=== PATIENT | male | born 1945 | race Caucasian/White ===

== ENCOUNTER 2016-11-01 10:56 | Observation (INO) | payer OTHER, MEDICARE ==
[2016-11-01] MEDS ORDERED: ASPIRIN 81 MG TABLET, CHEWABLE PO ONE (11:05)
--- NOTE | 2016-11-01 11:35 | RADIOLOGY REPORT (SQ) ---
EXAM DESCRIPTION: CHEST SINGLE VIEW COMPLETED DATE/TIME: 11/01/2016 11:23 am REASON FOR STUDY: chest pain COMPARISON: 12/25/2013 EXAM PARAMETERS: NUMBER OF VIEWS: One view. TECHNIQUE: Single frontal radiographic view of the chest acquired. RADIATION DOSE: NA LIMITATIONS: None. FINDINGS: LUNGS AND PLEURA: No opacities, masses or pneumothorax. No pleural effusion. MEDIASTINUM AND HILAR STRUCTURES: No masses. Contour normal. HEART AND VASCULAR STRUCTURES: Heart normal in size. Normal vasculature. BONES: No acute findings. HARDWARE: None in the chest. OTHER: No other significant finding. IMPRESSION: NO ACUTE RADIOGRAPHIC FINDING IN THE CHEST. TECHNICAL DOCUMENTATION: JOB ID: [id number]
--- NOTE | 2016-11-01 11:38 | ER Document Report ---
ED General - General Chief Complaint: Chest Pain Stated Complaint: CHEST PAIN Time Seen by Provider: 11/01/16 11:05 Mode of Arrival: Medic Information source: Patient Notes: 71-year-old male history of hypertension hypercholesterolemia presents with complaints of chest pain. Patient notes that the pain occurs every few months with tightness left arm pain. Patient has never seen a physician for [facility]. - HPI Onset: Other Onset/Duration: Intermittent Quality of pain: Pressure Severity: Mild Pain Level: 1 Associated symptoms: Chest pain Exacerbated by: Denies Relieved by: Denies Similar symptoms previously: Yes Recently seen / treated by doctor: Yes - Related Data Allergies/Adverse Reactions: No Known Allergies Allergy (Unverified 12/25/13 22:43) Past Medical History - Social History Smoking Status: Never Smoker Cigarette use (# per day): No Chew tobacco use (# tins/day): No Smoking Education Provided: No Family History: Reviewed & Not Pertinent - Past Medical History Cardiac Medical History: Reports: Hx Hypercholesterolemia, Hx Hypertension GI Medical History: Reports: Hx Gastroesophageal Reflux Disease - Immunizations Hx Diphtheria, Pertussis, Tetanus Vaccination: Yes Review of Systems - Review of Systems Notes: REVIEW OF SYSTEMS: CONSTITUTIONAL : Denies fever, chills, or sweats. Denies recent illness. EENT: Denies eye, ear, throat, or mouth pain or symptoms. Denies nasal or sinus congestion or discharge. Denies throat, tongue, or mouth swelling or difficulty swallowing. CARDIOVASCULAR: admits to chest pain RESPIRATORY: Denies cough, cold, or chest congestion. Denies shortness of breath, difficulty breathing, or wheezing. GASTROINTESTINAL: Denies abdominal pain or distention. Denies nausea, vomiting , or diarrhea. Denies blood in vomitus, stools, or per rectum. Denies black, tarry stools. Denies constipation. GENITOURINARY: Denies difficulty urinating, painful urination, burning, frequency, blood in urine, or discharge. MUSCULOSKELETAL: Denies back or neck pain or stiffness. Denies joint pain or swelling. SKIN: Denies rash, lesions or sores. HEMATOLOGIC : Denies easy bruising or bleeding. LYMPHATIC: Denies swollen, enlarged glands. NEUROLOGICAL: Denies confusion or altered mental status. Denies passing out or loss of consciousness. Denies dizziness or lightheadedness. Denies headache. Denies weakness or paralysis or loss of use of either side. Denies problems with gait or speech. Denies sensory loss, numbness, or tingling. Denies seizures. PSYCHIATRIC: Denies anxiety or stress. Denies depression, suicidal ideation, or homicidal ideation. ALL OTHER SYSTEMS REVIEWED AND NEGATIVE. Dictation was performed using [employer] voice recognition software PHYSICAL EXAMINATION: GENERAL: Well-appearing, well-nourished and in no acute distress. HEAD: Atraumatic, normocephalic. EYES: Pupils equal round and reactive to light, extraocular movements intact, sclera anicteric, conjunctiva are normal. ENT: Nares patent, oropharynx clear without exudates. Moist mucous membranes. NECK: Normal range of motion, supple without lymphadenopathy LUNGS: Breath sounds clear to auscultation bilaterally and equal. No wheezes rales or rhonchi. HEART: Regular rate and rhythm without murmurs ABDOMEN: Soft, nontender, nondistended abdomen. No guarding, no rebound. No masses appreciated. Musculoskeletal: Normal range of motion, no pitting or edema. No cyanosis. NEUROLOGICAL: Cranial nerves grossly intact. Normal speech, normal gait. Normal sensory, motor exams PSYCH: Normal mood, normal affect. SKIN: Warm, Dry, normal turgor, no rashes or lesions noted. Physical Exam - Vital signs Vitals: Temp 97.6 F 11/01/16 11:07 Course - Re-evaluation Re-evalutation: 11/01/16 12:14 patients labs pending, expect acs ruleout 11/01/16 15:40 Patient admitted for observation versus a cardiac enzymes lab work noted no significant abnormality - Vital Signs Vital signs: Temp Pulse Resp BP Pulse Ox 97.6 F 25 H 124/79 98 11/01/16 11:07 11/01/16 15:09 11/01/16 15:09 11/01/16 15:09 - Laboratory Result Diagrams: 11/01/16 11:30 11/01/16 11:30 Laboratory results interpreted by me: 11/01/16 11:30 RDW 16.2 H - Diagnostic Test Radiology reviewed: Image reviewed, Reports reviewed - EKG Interpretation by Me EKG shows normal: Sinus rhythm, [place], Intervals, QRS Complexes Discharge - Discharge Clinical Impression: Hypercholesteremia Chest pain Qualifiers: Chest pain type: unspecified Qualified Code(s): R07.9 - Chest pain, unspecified Hypertension Qualifiers: Hypertension type: essential hypertension Qualified Code(s): I10 - Essential ( primary) hypertension Condition: Stable Disposition: ADMITTED OBSERVATION Admitting Provider: Hospitalist Unit Admitted: Telemetry
[2016-11-01 11:44] LABS: ABSOLUTE BASOPHILS # (AUTO) 0.1 10^3/uL (0.0-0.2); ABSOLUTE EOSINOPHILS # (AUTO) 0.1 10^3/uL (0.0-0.6); ABSOLUTE LYMPHOCYTES (AUTO) 1.1 10^3/uL (0.5-4.7); ABSOLUTE MONOCYTES (AUTO) 0.5 10^3/uL (0.1-1.4); ABSOLUTE NEUT (AUTO) 4.5 10^3/uL (1.7-8.2); BASOPHILS % (AUTO) 1.2 % (0-2); EOSINOPHILS % (AUTO) 1.8 % (0-6); HEMATOCRIT 43.8 % (37.9-51.0); HEMOGLOBIN 14.5 g/dL (13.5-17.0); HGB HCT DIFFERENCE -0.3; LYMPHOCYTES % (AUTO) 16.9 % (13-45); MEAN CORPUSCULAR HEMOGLOBIN 28.4 pg (27.0-33.4); MEAN CORPUSCULAR VOLUME 86 fl (80-97); MONOCYTES % (AUTO) 8.6 % (3-13); RED CELL DISTRIBUTION WIDTH 16.2 % (11.5-14.0); SEGMENTED NEUTROPHILS % (AUTO) 71.5 % (42-78); WHITE BLOOD COUNT 6.3 10^3/uL (4.0-10.5)
[2016-11-01 12:06] LABS: ALANINE AMINOTRANSFERASE 29 U/L (21-72); ALBUMIN 3.9 g/dL (3.5-5.0); ALKALINE PHOSPHATASE 89 U/L (38-126); ANION GAP 10 (5-19); ASPARTATE AMINO TRANSFERASE 22 U/L (17-59); BILIRUBIN,DIRECT 0.3 mg/dL (0.0-0.4); BILIRUBIN,TOTAL 0.8 mg/dL (0.2-1.3); BLOOD UREA NITROGEN 12 mg/dL (7-20); CALCIUM 9.6 mg/dL (8.4-10.2); CARBON DIOXIDE 29 mmol/L (22-30); CHLORIDE 104 mmol/L (98-107); CREATINE KINASE 135 U/L (55-170); CREATININE RESULT 1.06 mg/dL (0.52-1.25); GLUCOSE 90 mg/dL (75-110); SODIUM 142.5 mmol/L (137-145); TOTAL PROTEIN 6.8 g/dL (6.3-8.2)
[2016-11-01 12:15] LABS: CREATINE KINASE MB 1.6 ng/mL (<4.55); TROPONIN I 0.024 ng/mL
[2016-11-01] MEDS ORDERED: ACETAMINOPHEN 325 MG TABLET PO PRN (13:50)
[2016-11-01] MEDS ORDERED: NITROGLYCERIN 0.4 MG/TAB 25 TAB/BOTTLE SL PRN (13:55)
[2016-11-01] MEDS ORDERED: MORPHINE SULFATE 10 MG/ML INJ IV PRN (13:55)
--- NOTE | 2016-11-01 14:10 | PDOC H&P ---
History of Present Illness Admission Date/PCP: 11/01/16 13:27 History of Present Illness: MEG ASIF is a 71 year old white male with a past medical history of hypertension, dyslipidemia and GERD who presents to the service with complaints of chest discomfort. Patient has been having chest pain off and on now for about a month. He describes it as an elephant sitting on his chest that comes and goes. Today it started again he presented to the [place] clinic. The clinic sent him over here to the emergency room. The patient states that his chest pain is left-sided and sometimes is associated with shortness of breath and sometimes radiates down the left arm. Denies any related sweats or palpitations. He has never had a stress test. 3 sisters are with him in the room and disclosed that the patient stopped taking all of his medications. The patient does not give a clear reason as to why he is not taking his medications he was asked repeatedly if it was issues with his mail order procedure, problems with memory, or problems with finances. His eldest sister finally speaks for him and says that she thinks it is an issue with his ability to order medications by mail. Cannot rate his pain on a scale from 0-10. Twice avoids the question. He often uses jokes to change the subject. In the emergency room the patient was given a full-strength aspirin EKG was negative. Troponins was negative 1. Believe the patient does not have any chest pain at the bedside. Past Medical History Cardiac Medical History: Reports: Hyperlipidema, Hypertension GI Medical History: Reports: Gastroesophageal Reflux Disease Past Surgical History Past Surgical History: Reports: None Social History Information Source: Patient, Relative - Has been smoking for more than 60 years. He is currently at a pack per day Smoking Status: Current Every Day Smoker Cigarettes Packs Per Day: 1 Number of Years Smokin Frequency of Alcohol Use: Rare Hx Recreational Drug Use: No Hx Prescription Drug Abuse: No Family History Family History: DM, Hyperlipidemia, Malignancy Parental Family History Reviewed: Yes Children Family History Reviewed: Yes Sibling(s) Family History Reviewed.: Yes Medication/Allergy Allergies/Adverse Reactions: No Known Allergies Allergy (Unverified 12/25/13 22:43) Review of Systems Review of Systems: Systems is pertinent as per that already listed in the HPI in addition to this the patient complains of dysuria and trouble making it to the bathroom on time. He denies any blood in the stool, blood in the urine, coughing up blood, throwing up blood, fevers, chills, nausea, vomiting, diarrhea, constipation, dizziness, lightheadedness, heat or cold intolerance. Physical Exam Vital Signs: Temp Pulse Resp BP Pulse Ox 97.6 F 19 129/84 H 99 11/01/16 11:07 11/01/16 13:01 11/01/16 13:01 11/01/16 13:01 Physical exam: General: This is a well-developed well-nourished appearing white male resting in bed currently in no acute distress. HEENT: Normocephalic atraumatic. Trachea is midline. No submandibular lymphadenopathy. No scleral icterus. Thyromegaly. Mucous membranes. Dentures are in place. Heart: Regular rate and rhythm no murmurs rubs or gallops. Telemetry shows normal sinus rhythm. Lungs: Clear to auscultation bilaterally with equal rise and fall of the chest Abdomen: Soft nontender nondistended. With active bowel sounds. Extremities: No clubbing cyanosis or edema. 1+ peripheral pulses. 5 strength in the upper and lower extremities bilaterally Neuro: Alert and oriented. During our conversation it is clear that the patient has some trouble with memory. He dislikes with making jokes and not answering questions directly. Eventually 1 of his sisters has to interject and answer questions for him. He seems to do a lot of word searching before answering. 2 through 12 are specifically intact. Results Impressions: Chest X-Ray 11/01/16 11:05 IMPRESSION: NO ACUTE RADIOGRAPHIC FINDING IN THE CHEST. Assessment & Plan - Diagnosis (1) Chest pain Qualifiers: Chest pain type: unspecified Qualified Code(s): R07.9 - Chest pain, unspecified Plan: The chest pain is currently resolved. Continue AMY as needed. Stress test in the morning. Trend troponins. EKG looks okay. (2) Hypercholesteremia Plan: I will need to verify his home medications. (3) Tobacco use disorder Plan: Cessation was advised (4) Essential hypertension Plan: Need to verify his home medications. According to the patient he has stopped taking his medications. Blood pressure at the bedside was 129/88. (5) History of CVA (cerebrovascular accident) Plan: No Residual effects. - Time Time Spent: 30 to 50 Minutes Anticipated discharge: Home Within: within 24 hours
[2016-11-01] MEDS ORDERED: NICOTINE 21 MG/24 HR PATCH.TD24 TD PRN (18:59)
--- NOTE | 2016-11-02 00:19 | EKG REPORT ---
SEVERITY:- ABNORMAL ECG - SINUS RHYTHM RIGHT BUNDLE BRANCH BLOCK PROBABLE INFERIOR INFARCT, OLD : Confirmed by: Jose A Rehman 02-Nov-2016 00:18:31
[2016-11-02] MEDS ORDERED: ASPIRIN 325 MG TABLET, ENT COATED PO SCH (10:00)
[2016-11-02 12:20] VITALS: BP 180/104
--- NOTE | 2016-11-02 13:20 | DRAGON STRESS TEST REPORT ---
INTRAVENOUS LEXISCAN CARDIOLITE STRESS TEST USING SINGLE PHOTON EMMISION COMPUTERIZED TOMOGRAPHIC. DATE OF PROCEDURE: November 02, 2016 INDICATION : Chest pain CARDIAC RISK FACTORS: Hypertension, dyslipidemia, smoking RESTING EKG: Sinus rhythm, left axis deviation, right bundle branch block pattern, no baseline ST segment changes. STRESS EKG: No significant changes noted with LexiScan bolus REASON FOR TERMINATION: Protocol. PROCEDURE REPORT: Baseline heart rate 70 beats per minute with blood pressure of 170/108. Patient had no significant complaints. Heart rate at 2 minutes post bolus 102 with a blood pressure of 153/95. 3 minutes post bolus heart rate 99 with blood pressure of 163/99. No significant EKG changes were noted. Patient had no significant complaints during the procedure or postprocedure. Patient injected with Aminophyllin 75 mg at 3 minutes or later after Lexiscan bolus. CONCLUSIONS: Normal EKG and hemodynamic response to IV LexiScan. NUCLEAR DATA: At rest the patient was given 11.63 millicuries of technetium 99 sestamibi injected intravenously. As per protocol rest gated SPECT images were obtained. Subsequently the patient was given intravenous LexiScan at a dose of 0.4 mg in 5 mL intravenously, followed by flush with normal saline. Subsequently the stress dose of 35.2 millicuries of technetium 99 sestamibi was injected intravenously. As per protocol stress gated images were obtained. NUCLEAR INTERPRETATION: Both raw and processed data were used for interpretation. Visual, qualitative, computer-generated quantitative data was used. There was good myocardial uptake of technetium compound. Motion artifact and soft tissue attenuations were noted. Increased visceral uptake was noted. Mild decreased uptake consistent with mild perfusion defect noted in the distal anterior wall, this is consistent with mild ischemia. SDS noted to be 4. No definitive areas of fixed perfusion defect or scars noted. EKG gated imaging showed LV EF at 48 %, rest and stress gated EF similar visually. T. I D. ratio was 1.10. Lung heart ratio noted to be within normal limits 0.33. No significant extracardiac and abnormal radiotracer activities were noted. RV free wall uptake was noted to be WNL. IMPRESSION: Also refer to comments under nuclear interpretation. Also test results needs to be interpreted in the context of pretest probability. 1. Mild decreased uptake consistent with mild perfusion defect noted in the distal anterior wall, this is consistent with mild ischemia. 2. There is no definitive scintigraphic evidence of myocardial infarction/scar. 3. EKG gated imaging shows left ejection fraction of approximately 48 %. 4. Clinical correlation requested as occasionally single vessel disease or balanced ischemia could be missed. In approximately 10% of the cases Lexiscan may not cause adequate vasodilatory stress. RECOMMENDATIONS: Aggressive risk factor modification, medical therapy. If significantly symptomatic and unresponsive to medical management, consider heart catheterization. Clinical correlation with echocardiogram derived ejection fraction. Inability to exercise by itself can lead to increased cardiovascular event risks. Consider cardiology consultation and or follow-up if clinically indicated. I AM AVAILABLE FOR CARDIOLOGY CONSULTATION AND FOLLOWUP IF REQUESTED BY PMD Jose A Rehman M.D., MADDI Mobile Engineer designer architect, Board certified in cardiovascular diseases, Nuclear cardiology, Echocardiography Cardiac CT and cardiac MRI Ph. [phone] [facility] WINDS PSYCHIATRIC HOSPITALFlavio
[2016-11-02] MEDS ORDERED: REGADENOSON INJ 0.4 MG/5 ML DISP.SYRIN IV ONE (13:41)
[2016-11-02] MEDS ORDERED: AMINOPHYLLINE INJ/PF 250 MG/10 ML SDV IV ONE (13:41)
--- NOTE | 2016-11-02 17:51 | PDOC DISCHARGE SUMMARY ---
General - Admit/Disc Date/PCP Admission Date/Primary Care Provider: 11/01/16 13:50 Discharge Date: 11/02/16 - Discharge Diagnosis (1) CAD (coronary artery disease) Is this a current diagnosis for this admission?: YesSummary: symptoms resolved and have not recurred, even during stress testing and he is anxious for d/c home at this time. his stress test is borderline with good TID ration 1.1 but elevated SDS of 4. Discussed with dr liu and he is recommending aggressive Rx management and if his symptoms recur then he will need heart cath. this was discussed with the patient at length and he is in agreement iwith the treeatment plan, doesn't wan to pursue invasive investigation at this time anyway. Rx s provide for the appropriate medications. f/u with cardio i n2 wks. (2) HTN (hypertension) Is this a current diagnosis for this admission?: Yes (3) Hypercholesteremia Is this a current diagnosis for this admission?: Yes - Additional Information Resuscitation Status: Full Code Discharge Diet: Cardiac Home Medications: Aspirin [Ecotrin 325 mg EC Tablet] 325 mg PO DAILY tabec 11/02/16 Atorvastatin Calcium 40 mg PO QHS 11/02/16 Isosorbide Mononitrate [Imdur 30 mg Tablet.er] 30 mg PO DAILY #30 tab.er.24h Lisinopril 40 mg PO DAILY 11/02/16 Metoprolol Succinate 25 mg PO BID #60 tab.er.24h 11/02/16 Nitroglycerin [Nitrostat 0.4 mg (1/150 Gr) Tabs 25/Bottle] 1 tab SL Q5MP PRN #1 bottle 11/02/16 History of Present Illness Patient complains of: chest pain History of Present Illness: MEG ASIF is a 71 year old male with a past medical history of hypertension, dyslipidemia and GERD who presents to the service with complaints of chest discomfort. Hospital Course Hospital Course: Patient has been having chest pain off and on now for about a month. He describes it as an elephant sitting on his chest that comes and goes. Today it started again he presented to the [place] clinic. The clinic sent him over here to the emergency room. The patient states that his chest pain is left-sided and sometimes is associated with shortness of breath and sometimes radiates down the left arm. Denies any related sweats or palpitations. He has never had a stress test. 3 sisters are with him in the room and disclosed that the patient stopped taking all of his medications. The patient does not give a clear reason as to why he is not taking his medications he was asked repeatedly if it was issues with his mail order procedure, problems with memory, or problems with finances. His eldest sister finally speaks for him and says that she thinks it is an issue with his ability to order medications by mail. Cannot rate his pain on a scale from 0-10. Twice avoids the question. He often uses jokes to change the subject. In the emergency room the patient was given a full-strength aspirin EKG was negative. Troponins was negative 1. Believe the patient does not have any chest pain at the bedside. his symptoms resolved and have not recurred, he is stable for d/c home at this time. see above discussion for details. Physical Exam Vital Signs: Temp Pulse Resp BP Pulse Ox 98.1 F 79 18 180/104 H 99 11/02/16 14:50 11/02/16 14:50 11/02/16 14:50 11/02/16 14:50 11/02/16 14:50 Intake & Output 11/01/16 11/02/16 11/03/16 06:59 06:59 06:59 Intake Total 1130 720 Balance 1130 720 Weight 75.8 kg General appearance: PRESENT: no acute distress, well-developed, well-nourished Head exam: PRESENT: atraumatic, normocephalic Eye exam: PRESENT: EOMI. ABSENT: conjunctival injection Mouth exam: PRESENT: neck supple Respiratory exam: PRESENT: clear to auscultation [place]. ABSENT: accessory muscle use Cardiovascular exam: PRESENT: RRR. ABSENT: systolic murmur GI/Abdominal exam: PRESENT: normal bowel sounds, soft Neurological exam: PRESENT: alert, awake, oriented to person, oriented to place , oriented to time Results Laboratory Results: 11/02/16 04:07 TSH 2.05 11/01/16 11/01/16 11/01/16 17:20 17:20 23:38 Creatine Kinase 114 131 Troponin I 0.024 11/01/16 23:38 Creatine Kinase Troponin I 0.028 Impressions: Chest X-Ray 11/01/16 11:05 IMPRESSION: NO ACUTE RADIOGRAPHIC FINDING IN THE CHEST. Qualifiers PATEINT BEING DISCHARGED WITH ANY OF THE FOLLOWING DIAGNOSIS?: No VTE patient discharged on overlapping Therapy?: No Reason(s) for not prescribing Overlap Therapy:: Not indicated Plan Discharge Plan: home on angina Rx and close cardio f/u Time Spent: Greater than 30 Minutes
== END 2016-11-02 15:10 | disposition home or self-care (01) ==
LOC: ER 10:56 → UNDOADMOB 13:27 → EH 13:27 → 5 16:24
PROVIDERS: ADMIT Hospitalist; ATTEND Hospitalist
DX: I25.10 Atherosclerotic heart disease of native coronary artery without angina pectoris (principal); I10 Essential (primary) hypertension; E78.00 Pure hypercholesterolemia, unspecified; F17.210 Nicotine dependence, cigarettes, uncomplicated; R30.0 Dysuria; R39.198 Other difficulties with micturition; R41.3 Other amnesia; Z86.73 Personal history of transient ischemic attack (TIA), and cerebral infarction without residual deficits; Z79.82 Long term (current) use of aspirin; Z79.899 Other long term (current) drug therapy; Z87.19 Personal history of other diseases of the digestive system; Z91.14 Patient's other noncompliance with medication regimen
CPT/HCPCS: 93005; 99285; 36415 ×2; 82553; 82550; 84443; 85025; 80053; 84484; 93017; 71010; 78452; 93010; G0378 ×3; A9500; J2785; J3490 ×2; J0280; Q9969

== ENCOUNTER 2017-12-15 13:33 | Observation (INO) | payer OTHER, MEDICARE ==
--- NOTE | 2017-12-15 14:21 | ER Document Report ---
ED Skin Rash/Insect Bite/Abscs - General Chief Complaint: Abscess Stated Complaint: POSSIBLE ABCESS Time Seen by Provider: 12/15/17 14:02 Mode of Arrival: Ambulatory Information source: Patient Notes: 72-year-old male presents to ED for complaint of a "abscess "to his right forehead pop. This is not an abscess. This looks to be a squamous cell or a cyst. Dr. Mccarty has come and evaluated the abscess after I consulted Dr. Erickson. He states that it is been there for some time he is not sure how long but that it started hurting a couple days ago when he brushed his hair so he came to the emergency room. He states he goes to the [place] clinic. He does not remember his medical history he does have a history of high blood pressure high cholesterol according to our chart he has had a stroke in the past. He did have a stress test last time he was admitted. TRAVEL OUTSIDE OF THE [place] IN LAST 30 DAYS: No - HPI Patient complains to provider of: Tender/swollen area - Right forehead Onset: Other Onset/Duration: Gradual Quality of pain: Sharp Severity: Moderate Pain Level: 3 Skin Character: Other - growth to right forehead Skin Temperature: Warm Quality of rash: Painful Identify cause: No Exacerbated by: Other - palpation Relieved by: Denies Similar symptoms previously: Yes Recently seen / treated by doctor: Yes - Related Data Allergies/Adverse Reactions: No Known Allergies Allergy (Verified 12/15/17 13:33) Past Medical History - General Information source: Patient - Social History Smoking Status: Former Smoker Cigarette use (# per day): No Chew tobacco use (# tins/day): No Smoking Education Provided: No Frequency of alcohol use: Occasional Drug Abuse: None Lives with: Alone Family History: Reviewed & Not Pertinent Patient has suicidal ideation: No Patient has homicidal ideation: No - Past Medical History Cardiac Medical History: Reports: Hx Hypercholesterolemia, Hx Hypertension Pulmonary Medical History: Reports: None EENT Medical History: Reports: None Neurological Medical History: Reports: Hx Cerebrovascular Accident Endocrine Medical History: Reports: None Renal/ Medical History: Reports: None Malignancy Medical History: Reports None GI Medical History: Reports: Hx Gastroesophageal Reflux Disease Musculoskeletal Medical History: Reports None Skin Medical History: Reports None Psychiatric Medical History: Reports: None Traumatic Medical History: Reports: None Infectious Medical History: Reports: None Surgical Hx: Negative Past Surgical History: Reports: None - Immunizations Hx Diphtheria, Pertussis, Tetanus Vaccination: Yes Review of Systems - Review of Systems Constitutional: No symptoms reported EENT: Other - Large growth to the right side of forehead Cardiovascular: No symptoms reported Respiratory: No symptoms reported Gastrointestinal: No symptoms reported Genitourinary: No symptoms reported Male Genitourinary: No symptoms reported Musculoskeletal: No symptoms reported Skin: No symptoms reported Hematologic/Lymphatic: No symptoms reported Neurological/Psychological: No symptoms reported -: Yes All other systems reviewed and negative Physical Exam - Vital signs Vitals: Temp Pulse Resp BP Pulse Ox 98.8 F 82 18 153/99 H 96 12/15/17 13:47 12/15/17 13:47 12/15/17 13:47 12/15/17 13:47 12/15/17 13:47 Interpretation: Normal - General General appearance: Appears well, Alert - HEENT Head: Tenderness - Large growth to the right side of the forehead Eyes: Normal Pupils: PERRL Ears: Normal External canal: Normal Tympanic membrane: Normal Sinus: Normal Nasal: Normal Mouth/Lips: Normal Mucous membranes: Normal Pharynx: Normal Neck: Normal - Respiratory Respiratory status: No respiratory distress Chest status: Nontender Breath sounds: Normal Chest palpation: Normal - Cardiovascular Rhythm: Regular Heart sounds: Normal auscultation Murmur: No - Abdominal Inspection: Normal Distension: No distension Bowel sounds: Normal Tenderness: Nontender Organomegaly: No organomegaly - Back Back: Normal, Nontender - Extremities General upper extremity: Normal inspection, Nontender, Normal color, Normal ROM , Normal temperature General lower extremity: Normal inspection, Nontender, Normal color, Normal ROM , Normal temperature, Normal weight bearing. No: Vin's sign - Neurological Neuro grossly intact: Yes Cognition: Normal Orientation: AAOx4 [place] Coma Scale Eye Opening: Spontaneous Noni Coma Scale Verbal: Oriented Noni Coma Scale Motor: Obeys Commands Noni Coma Scale Total: 15 Speech: Normal Motor strength normal: LUE, RUE, LLE, RLE Sensory: Normal - Psychological Associated symptoms: Normal affect, Normal mood - Skin Skin Temperature: Warm Skin Moisture: Dry Skin Color: Normal Course - Re-evaluation Re-evalutation: 12/15/17 17:22 Dr. Mccarty was consulted as well as Dr. Tariq, patient has been admitted and will go to surgery as soon as he has completed case since he already has on the table. Lab works were completed, and stated he did not need a chest x-ray, and EKG was completed. 12/15/17 17:25 - Vital Signs Vital signs: Temp Pulse Resp BP Pulse Ox 98.2 F 74 16 197/106 H 99 12/15/17 17:10 12/15/17 17:10 12/15/17 17:10 12/15/17 17:10 12/15/17 17:10 - Laboratory Result Diagrams: 12/15/17 15:50 12/15/17 15:50 Discharge - Discharge Clinical Impression: facial growth Condition: Good Disposition: ADMITTED INPATIENT Admitting Provider: Surgicalist - [facility] Unit Admitted: Surgical Floor
[2017-12-15] MEDS ORDERED: DEXTROSE 5%-1/2 NORMAL SALINE 500 ML IV ONE (14:26)
[2017-12-15] MEDS ORDERED: DEXTROSE 5%-1/2 NORMAL SALINE 1,000 ML IV ONE (14:26)
--- NOTE | 2017-12-15 14:38 | PDOC H&P ---
History of Present Illness Patient complains of: Right scalp mass with the painful drainage History of Present Illness: MEG ASIF is a 72 year old male presenting with a several week history of a right scalp lesion with a recent drainage of purulent material with some tenderness. Patient is an extremely poor historian and he cannot give much more information than this. He denies any prior medical problems and he denies any cardiac issues however he forgets that he was recently admitted for cardiology evaluation with a stress test that was borderline. He denies any active cardiac symptoms. No chest pain no shortness of breath. He states that he is on no medications at this time. Past Medical History Cardiac Medical History: Reports: Hyperlipidema, Hypertension GI Medical History: Reports: Gastroesophageal Reflux Disease Psychiatric Medical History: Denies: Depression Social History Smoking Status: Current Every Day Smoker Frequency of Alcohol Use: Rare Hx Recreational Drug Use: No Drugs: None Hx Prescription Drug Abuse: No Family History Family History: Reviewed & Not Pertinent Parental Family History Reviewed: No Children Family History Reviewed: No Sibling(s) Family History Reviewed.: No Medication/Allergy Home Medications: Aspirin [Ecotrin 325 mg EC Tablet] 325 mg PO DAILY tabec 11/02/16 Atorvastatin Calcium 40 mg PO QHS 11/02/16 Isosorbide Mononitrate [Imdur 30 mg Tablet.er] 30 mg PO DAILY #30 tab.er.24h Lisinopril 40 mg PO DAILY 11/02/16 Metoprolol Succinate 25 mg PO BID #60 tab.er.24h 11/02/16 Nitroglycerin [Nitrostat 0.4 mg (1/150 Gr) Tabs 25/Bottle] 1 tab SL Q5MP PRN #1 bottle 11/02/16 Allergies/Adverse Reactions: No Known Allergies Allergy (Verified 12/15/17 13:33) Physical Exam Vital Signs: Temp Pulse Resp BP Pulse Ox 98.8 F 82 18 153/99 H 96 12/15/17 13:47 12/15/17 13:47 12/15/17 13:47 12/15/17 13:47 12/15/17 13:47 Intake & Output 12/14/17 12/15/17 12/16/17 06:59 06:59 06:59 Weight 72.1 kg General appearance: PRESENT: no acute distress, cooperative Eye exam: PRESENT: conjunctiva pink Respiratory exam: PRESENT: clear to auscultation [place] Cardiovascular exam: PRESENT: RRR GI/Abdominal exam: PRESENT: other - Soft, nondistended, nontender to palpation. Neurological exam: PRESENT: alert, awake Psychiatric exam: PRESENT: flat affect Skin exam: PRESENT: other - Right scalp just above the hairline at the very superior temporal region there is a 4 x 4 centimeter cystic feeling mass with purulent drainage with overlying skin thickening and a lot of crusting from the drainage on the skin. There is some discoloration of the skin as well. Assessment & Plan - Diagnosis (1) Pilar cyst Is this a current diagnosis for this admission?: Yes Plan: Infected. The overlying skin has some reactive changes. I cannot entirely exclude a malignancy but it has a typical appearance for a pilar cyst other than the skin changes. I will plan excisional debridement in the operating room. I have discussed with the patient the risk and benefits of the procedure including bleeding and infection and prolonged wound healing and possibility of additional surgery requirement if this skin has evidence of malignancy.
[2017-12-15] MEDS ORDERED: NORMAL SALINE 1000 ML 1,000 ML IV ONE (15:07)
[2017-12-15 16:15] LABS: ABSOLUTE EOSINOPHILS # (AUTO) 0.2 10^3/uL (0.0-0.6); ABSOLUTE LYMPHOCYTES (AUTO) 1.2 10^3/uL (0.5-4.7); ABSOLUTE MONOCYTES (AUTO) 0.6 10^3/uL (0.1-1.4); ABSOLUTE NEUT (AUTO) 6.1 10^3/uL (1.7-8.2); BASOPHILS % (AUTO) 0.3 % (0-2); EOSINOPHILS % (AUTO) 2.3 % (0-6); HEMATOCRIT 44.5 % (37.9-51.0); LYMPHOCYTES % (AUTO) 15.2 % (13-45); MEAN CORPUSCULAR HEMOGLOBIN 28.5 pg (27.0-33.4); MEAN CORPUSCULAR HGB CONC 33.7 g/dL (32.0-36.0); MEAN CORPUSCULAR VOLUME 85 fl (80-97); MONOCYTES % (AUTO) 7.7 % (3-13); PLATELET COUNT 359 10^3/uL (150-450); RED BLOOD COUNT 5.26 10^6/uL (4.35-5.55); RED CELL DISTRIBUTION WIDTH 15.4 % (11.5-14.0); SEGMENTED NEUTROPHILS % (AUTO) 74.5 % (42-78); TOTAL CELLS COUNTED % (AUTO) 100 %; WHITE BLOOD COUNT 8.2 10^3/uL (4.0-10.5)
[2017-12-15 16:22] LABS: APPEARANCE,URINE CLEAR; BILIRUBIN,URINE NEGATIVE (NEGATIVE); COLOR,URINE YELLOW; GLUCOSE, URINE NEGATIVE (NEGATIVE); KETONES,URINE NEGATIVE (NEGATIVE); LEUKOCYTE ESTERASE,URINE NEGATIVE (NEGATIVE); NITRITE,URINE NEGATIVE (NEGATIVE); PROTEIN,URINE NEGATIVE (NEGATIVE); URINE SPECIFIC GRAVITY 1.015
[2017-12-15 16:36] LABS: ALANINE AMINOTRANSFERASE 21 U/L (21-72); ALBUMIN 3.8 g/dL (3.5-5.0); ALKALINE PHOSPHATASE 105 U/L (38-126); ANION GAP 10 (5-19); ASPARTATE AMINO TRANSFERASE 18 U/L (17-59); BILIRUBIN,DIRECT 0.3 mg/dL (0.0-0.4); BILIRUBIN,TOTAL 0.6 mg/dL (0.2-1.3); BLOOD UREA NITROGEN 13 mg/dL (7-20); CALCIUM 9.8 mg/dL (8.4-10.2); CARBON DIOXIDE 27 mmol/L (22-30); CHLORIDE 107 mmol/L (98-107); CREATINE KINASE 73 U/L (55-170); GLUCOSE 85 mg/dL (75-110); POTASSIUM 3.9 mmol/L (3.6-5.0); SODIUM 144.3 mmol/L (137-145); TOTAL PROTEIN 6.9 g/dL (6.3-8.2)
[2017-12-15 16:48] LABS: CREATINE KINASE MB 1.2 ng/mL (<4.55); TROPONIN I 0.017 ng/mL
--- NOTE | 2017-12-15 17:20 | RADIOLOGY REPORT (SQ) ---
EXAM DESCRIPTION: CT HEAD WITH COMPLETED DATE/TIME: 12/15/2017 5:04 pm REASON FOR STUDY: confusion with growth on right forehead COMPARISON: 12/25/2013 TECHNIQUE: Axial images acquired through the brain with intravenous contrast. Images reviewed with b one, brain and subdural windows. Images stored on PACS. All CT scanners at this facility use dose modulation, iterative reconstruction, and/or weight based d osing when appropriate to reduce radiation dose to as low as reasonably achievable (ALARA). [facility]: Dose Right [facility]: CareDose [facility]: Dose Right [facility]: Teradose 4D [facility]: [place]ch CONTRAST TYPE AND DOSE: contrast/concentration: Isovue 370.00 mg/ml; Total Contrast Delivered: 50.0 ml; Total Saline Delivered: 50.0 ml RENAL FUNCTION: GFR > 60. RADIATION DOSE: CT Rad equipment meets quality standard of care and radiation dose reduction techniq ues were employed. CTDIvol: 53.2 mGy. DLP: 3131 mGy-cm.. LIMITATIONS: None. FINDINGS: VENTRICLES: Prominent. CEREBRUM: Old right temporal lobe infarct. No hemorrhage. No midline shift. Areas of low density i n the white matter most likely due to chronic micro-vascular ischemic change. No evidence for acute infarction. No enhancing lesions. CEREBELLUM: No masses. No hemorrhage. No alteration of density. No evidence for acute infarction. N o enhancing lesions. EXTRAAXIAL SPACES: Age-related involutional change. No fluid collections. No masses. ORBITS AND GLOBE: No intra- or extraconal masses. Normal contour of globe without masses. CALVARIUM: No fracture. PARANASAL SINUSES: No fluid or mucosal thickening. SOFT TISSUES: 3.5 cm partial rim enhancing mass in the superficial soft tissues of the right frontote mporal region with adjacent skin thickening and subcutaneous induration. No osseous or intracranial involvement noted. OTHER: No other significant finding. IMPRESSION: .5 cm partial rim enhancing mass in the superficial soft tissues of the right frontotemp oral region with adjacent skin thickening and subcutaneous induration. No osseous or intracranial in volvement noted. CHRONIC CHANGES OF ATROPHY AND ISCHEMIA. EVIDENCE OF ACUTE STROKE: NO. TECHNICAL DOCUMENTATION: JOB ID: [id number] [id number] Quality ID # [id number]: Final reports with documentation of one or more dose reduction techniques (e.g., Au tomated exposure control, adjustment of the mA and/or kV according to patient size, use of iterative reconstruction technique) 2010 [employer]- All Rights Reserved Reading location - IP/workstation name: [email or web address]
[2017-12-15 17:46] VITALS: BP 204/104
--- NOTE | 2017-12-15 18:07 | PDOC CONSULTATION ---
Consultation Consult Date: 12/15/17 Attending physician:: KASSANDRA SUTTON Consult reason:: Medical management History of Present Illness Admission Date/PCP: 12/15/17 15:41 History of Present Illness: MEG ASIF is a 72 year old male patient admitted for cellulitis and abscess formation left temporal scalp. He is scheduled for incision and drainage by Dr. Sutton. His past medical history significant for hypertension, hyperlipidemia, gastroesophageal reflux disease and tobacco dependence. He denies also any constitutional symptoms. The hospitalist service consulted for medical management. Patient also found to have markedly elevated blood pressure of 190/110. Past Medical History Cardiac Medical History: Reports: Hyperlipidema, Hypertension Pulmonary Medical History: Reports: None EENT Medical History: Reports: None Endocrine Medical History: Reports: None Renal/ Medical History: Reports: None Malignancy Medical History: Reports: None GI Medical History: Reports: Gastroesophageal Reflux Disease Musculoskeltal Medical History: Reports: None Skin Medical History: Reports: None Psychiatric Medical History: Reports: None Denies: Depression Traumatic Medical History: Reports: None Infectious Medical History: Reports: None Past Surgical History Past Surgical History: Reports: None Social History Lives with: Alone Smoking Status: Current Every Day Smoker Frequency of Alcohol Use: Occasional Hx Recreational Drug Use: No Drugs: None Hx Prescription Drug Abuse: No - Advance Directive Resuscitation Status: Full Code Family History Family History: Reviewed & Not Pertinent Parental Family History Reviewed: Yes Children Family History Reviewed: Yes Sibling(s) Family History Reviewed.: Yes Medication/Allergy Allergies/Adverse Reactions: No Known Allergies Allergy (Verified 12/15/17 13:33) Physical Exam Vital Signs: Temp Pulse Resp BP Pulse Ox 98.2 F 74 16 204/104 H 99 12/15/17 17:10 12/15/17 17:10 12/15/17 17:10 12/15/17 17:28 12/15/17 17:10 General appearance: PRESENT: no acute distress Head exam: PRESENT: other - There is 3 x 5 cm rounded lesion over the right temporal lesion. Eye exam: PRESENT: conjunctiva pink Mouth exam: PRESENT: moist Neck exam: ABSENT: carotid bruit, JVD, lymphadenopathy, thyromegaly Respiratory exam: PRESENT: clear to auscultation [place]. ABSENT: rales, rhonchi, wheezes Cardiovascular exam: PRESENT: RRR. ABSENT: diastolic murmur, rubs, systolic murmur Extremities exam: PRESENT: full ROM. ABSENT: calf tenderness, clubbing, pedal edema Neurological exam: PRESENT: alert, awake, oriented to time Psychiatric exam: PRESENT: normal mood Results Laboratory Results: 12/15/17 15:50 12/15/17 15:50 12/15/17 12/15/17 12/15/17 15:50 15:50 15:50 WBC 8.2 RBC 5.26 Hgb 15.0 Hct 44.5 MCV 85 MCH 28.5 MCHC 33.7 RDW 15.4 H Plt Count 359 Seg Neutrophils % 74.5 Lymphocytes % 15.2 Monocytes % 7.7 Eosinophils % 2.3 Basophils % 0.3 Absolute Neutrophils 6.1 Absolute Lymphocytes 1.2 Absolute Monocytes 0.6 Absolute Eosinophils 0.2 Absolute Basophils 0.0 Sodium 144.3 Potassium 3.9 Chloride 107 Carbon Dioxide 27 Anion Gap 10 BUN 13 Creatinine 1.17 Est GFR ( Amer) > 60 Est GFR (Non-Af Amer) > 60 Glucose 85 Calcium 9.8 Total Bilirubin 0.6 AST 18 ALT 21 Alkaline Phosphatase 105 Total Protein 6.9 Albumin 3.8 Urine Color YELLOW Urine Appearance CLEAR Urine pH 6.0 Ur Specific [place] 1.015 Urine Protein NEGATIVE Urine Glucose (UA) NEGATIVE Urine Ketones NEGATIVE Urine Blood NEGATIVE Urine Nitrite NEGATIVE Ur Leukocyte Esterase NEGATIVE Urine WBC (Auto) 1 12/15/17 12/15/17 15:50 15:50 Creatine Kinase 73 CK-MB (CK-2) 1.20 Troponin I 0.017 Impressions: Head CT 12/15/17 14:37 IMPRESSION: .5 cm partial rim enhancing mass in the superficial soft tissues of the right frontotemporal region with adjacent skin thickening and subcutaneous induration. No osseous or intracranial involvement noted. CHRONIC CHANGES OF ATROPHY AND ISCHEMIA. EVIDENCE OF ACUTE STROKE: NO. Assessment & Plan - Diagnosis (1) Cellulitis of head or scalp Is this a current diagnosis for this admission?: Yes Plan: Continue antibiotics (2) Hypertensive urgency Is this a current diagnosis for this admission?: Yes Plan: Patient has been started on Lopressor 50 mg twice daily and Norvasc 10 mg p.o. daily. (3) Hyperlipidemia Qualifiers: Hyperlipidemia type: unspecified Qualified Code(s): E78.5 - Hyperlipidemia , unspecified Is this a current diagnosis for this admission?: Yes Plan: Continue home statin (4) Gastroesophageal reflux disease Is this a current diagnosis for this admission?: Yes Plan: We will start him on lansoprazole
[2017-12-15] MEDS ORDERED: METOPROLOL TARTRATE 100 MG TABLET PO ONE (19:00)
[2017-12-15] MEDS ORDERED: AMLODIPINE BESYLATE 5 MG TABLET PO SCH (19:00)
--- NOTE | 2017-12-15 19:35 | DISCHARGE SUMMARY E ---
Discharge Summary NAME: MEG ASIF : 1945 AGE: 72Y ADMITTED: 12/15/2017 DISCHARGED: 12/15/2017 FINAL DIAGNOSES: 1. PILAR CYST INFECTED ON THE PATIENT'S RIGHT SCALP. 2. HYPERTENSION. 3. CORONARY ARTERY DISEASE. HOSPITAL COURSE: The patient was being prepared for surgery. He underwent an EKG and underwent vital sign checks. He was noted with hypertension. He was noted with EKG abnormalities with evidence of right bundle branch block and possible old inferior infarct. While awaiting surgery, the patient decided to sign out against medical advice. DICTATING PHYSICIAN: JACOBY SUTTON M.D. [id number] PHY#: [id number] ID: [id number] JOB#: [id number] ACCT: [id number] cc:Amina RIVERA MD, M.D. JACQUELINE AUGSBURGER, PA >
[2017-12-15] MEDS ORDERED: METOPROLOL TARTRATE 50 MG TABLET PO SCH (22:00)
--- NOTE | 2017-12-16 00:03 | EKG REPORT ---
SEVERITY:- ABNORMAL ECG - SINUS RHYTHM PROBABLE LEFT ATRIAL ABNORMALITY RIGHT BUNDLE BRANCH BLOCK CONSIDER INFERIOR INFARCT : Confirmed by: Asmita Carballo MD 16-Dec-2017 00:02:46
== END 2017-12-15 18:50 | disposition left against medical advice (07) ==
LOC: ER 13:33 → EH 15:41 → INTOOBSV 15:41 → 2N 17:20
DX: L72.11 Pilar cyst (principal); I10 Essential (primary) hypertension; I25.10 Atherosclerotic heart disease of native coronary artery without angina pectoris; R94.31 Abnormal electrocardiogram [ECG] [EKG]; I45.10 Unspecified right bundle-branch block; Z53.21 Procedure and treatment not carried out due to patient leaving prior to being seen by health care provider; F17.200 Nicotine dependence, unspecified, uncomplicated; E78.5 Hyperlipidemia, unspecified; K21.9 Gastro-esophageal reflux disease without esophagitis; Z86.73 Personal history of transient ischemic attack (TIA), and cerebral infarction without residual deficits; Z79.82 Long term (current) use of aspirin; Z79.899 Other long term (current) drug therapy
CPT/HCPCS: 93005; 99284; 36415; 87040; 82553; 82550; 85025; 80053; 81001; 84484; 70460; 93010; J7030